=== PATIENT | female | born 1970 | race Caucasian/White ===

== ENCOUNTER 2016-08-09 07:17 | Emergency (ER) | payer BC, OTHER ==
--- NOTE | 2016-08-09 08:39 | ER Document Report ---
HPI - HPI Pain Level: 4 - REPRODUCTIVE LMP: hysterectomy Reproductive: DENIES: : - DERM Skin Color: Normal <ANUJ FUENTES - Last Filed: 08/09/16 08:39> Past Medical History - Social History Smoking Status: Never Smoker Patient has suicidal ideation: No Patient has homicidal ideation: No - Past Medical History Cardiac Medical History: Denies: Hx Coronary Artery Disease, Hx Heart Attack, Hx Hypertension Pulmonary Medical History: Reports: Hx Asthma - WHEEZING FROM COUGH Denies: Hx Bronchitis, Hx COPD, Hx Pneumonia, Hx Tuberculosis Neurological Medical History: Denies: Hx Cerebrovascular Accident, Hx Seizures Renal/ Medical History: Reports: Hx Ovarian Cysts - left. Denies: Hx End Stage Renal Disease, Hx Kidney Stones, Hx Peritoneal Dialysis, Hx Pelvic Inflammatory Disease Malignancy Medical History: Denies: Hx Breast Cancer, Hx Cervical Cancer, Hx Ovarian Cancer Past Surgical History: Reports: Hx Tonsillectomy. Denies: Hx Appendectomy, Hx Bowel Surgery, Hx Section, Hx Cholecystectomy, Hx Coronary Artery Bypass Graft, Hx Gastric Bypass Surgery, Hx Herniorrhaphy, Hx Hysterectomy, Hx Mastectomy, Hx Pacemaker, Hx Tubal Ligation - Immunizations Immunizations up to date: Yes Hx Diphtheria, Pertussis, Tetanus Vaccination: Yes - UNKNOWN <ANUJ FUENTES - Last Filed: 08/09/16 08:39> Vertical Provider Document - INFECTION CONTROL TRAVEL OUTSIDE OF THE [place] IN LAST 30 DAYS: No - RESPIRATORY O2 Sat by Pulse Oximetry: 97 <ANUJ FUENTES - Last Filed: 08/09/16 08:39> Course - Vital Signs Vital signs: Temp Pulse Resp BP Pulse Ox 97.3 F 88 16 132/79 H 97 08/09/16 07:24 08/09/16 07:24 08/09/16 07:55 08/09/16 07:24 08/09/16 07:24 <ANUJ FUENTES - Last Filed: 08/09/16 08:39> - Vital Signs Vital signs: Temp Pulse Resp BP Pulse Ox 97.3 F 88 16 132/79 H 97 08/09/16 07:24 08/09/16 07:24 08/09/16 07:55 08/09/16 07:24 08/09/16 08:39 <DIGNA BELLAMY - Last Filed: 02/07/17 10:01> Discharge <ANUJ FUENTES - Last Filed: 08/09/16 08:39> <DIGNA BELLAMY - Last Filed: 08/09/16 10:01> - Discharge Clinical Impression: Influenza A Instructions: Influenza ([facility]) [id number] Additional Instructions: Avoid people that smoke. Please drink plenty water to stay hydrated. You can expect to feel sick and unwell for approximately 1-2 weeks. Please follow-up with your primary care provider in approximately one week. Continue with Tylenol Motrin for fever control and pain control. Prescriptions: Ondansetron [Zofran Odt 4 mg Tablet] 1 - 2 tab PO Q4H PRN #30 tab.rapdis PRN Reason: For Nausea/Vomiting Forms: Return to Work
[2016-08-09] MEDS ORDERED: ALBUTEROL SULFATE HFA (90 MCG/PUFF) 8 GM MDI (1 MDI/ER DISP) IH ONE (09:54)
[2016-08-09 10:11] VITALS: BP 130/75
--- NOTE | 2016-08-09 21:04 | ER Document Report ---
ED General - General Chief Complaint: Flu Symptoms Stated Complaint: BODY ACHES TRAVEL OUTSIDE OF THE [place] IN LAST 30 DAYS: No - HPI Patient complains to provider of: fevers chills body aches Notes: This coming in for day history of fevers chills body aches nausea vomiting diarrhea patient denies any flu shot this year. Patient denies any recent travel denies any recent antibiotics. Otherwise patient nontoxic looking upon my evaluation. - Related Data Allergies/Adverse Reactions: No Known Drug Allergies Allergy (Verified 08/09/16 07:23) POLLEN Allergy (Mild, Uncoded 06/11/12 13:52) Past Medical History - Social History Smoking Status: Never Smoker Family History: Reviewed & Not Pertinent Patient has suicidal ideation: No Patient has homicidal ideation: No - Past Medical History Cardiac Medical History: Denies: Hx Coronary Artery Disease, Hx Heart Attack, Hx Hypertension Pulmonary Medical History: Reports: Hx Asthma - WHEEZING FROM COUGH Denies: Hx Bronchitis, Hx COPD, Hx Pneumonia, Hx Tuberculosis Neurological Medical History: Denies: Hx Cerebrovascular Accident, Hx Seizures Renal/ Medical History: Reports: Hx Ovarian Cysts - left. Denies: Hx End Stage Renal Disease, Hx Kidney Stones, Hx Peritoneal Dialysis, Hx Pelvic Inflammatory Disease Malignancy Medical History: Denies: Hx Breast Cancer, Hx Cervical Cancer, Hx Ovarian Cancer Past Surgical History: Reports: Hx Tonsillectomy. Denies: Hx Appendectomy, Hx Bowel Surgery, Hx Section, Hx Cholecystectomy, Hx Coronary Artery Bypass Graft, Hx Gastric Bypass Surgery, Hx Herniorrhaphy, Hx Hysterectomy, Hx Mastectomy, Hx Pacemaker, Hx Tubal Ligation - Immunizations Immunizations up to date: Yes Hx Diphtheria, Pertussis, Tetanus Vaccination: Yes - UNKNOWN Review of Systems - Review of Systems Constitutional: Fever - Myalgias, Malaise EENT: No symptoms reported Cardiovascular: No symptoms reported Respiratory: No symptoms reported Gastrointestinal: Nausea, Vomiting Genitourinary: No symptoms reported Female Genitourinary: No symptoms reported Musculoskeletal: No symptoms reported Skin: No symptoms reported Hematologic/Lymphatic: No symptoms reported Neurological/Psychological: No symptoms reported -: Yes All other systems reviewed and negative Physical Exam - Vital signs Vitals: Temp Pulse Resp BP Pulse Ox 97.3 F 88 18 132/79 H 97 08/09/16 07:24 08/09/16 07:24 08/09/16 07:24 08/09/16 07:24 08/09/16 07:24 Interpretation: Normal - General General appearance: Appears well, Alert - HEENT Head: Normocephalic, Atraumatic Eyes: Normal Pupils: PERRL - Respiratory Respiratory status: No respiratory distress Chest status: Nontender Breath sounds: Normal Chest palpation: Normal - Cardiovascular Rhythm: Regular Heart sounds: Normal auscultation Murmur: No - Abdominal Inspection: Normal Distension: No distension Bowel sounds: Normal Tenderness: Nontender Organomegaly: No organomegaly - Back Back: Normal, Nontender - Extremities General upper extremity: Normal inspection, Nontender, Normal color, Normal ROM , Normal temperature General lower extremity: Normal inspection, Nontender, Normal color, Normal ROM , Normal temperature, Normal weight bearing. No: No's sign - Neurological Neuro grossly intact: Yes Cognition: Normal Orientation: AAOx4 Wayne Coma Scale Eye Opening: Spontaneous Wayne Coma Scale Verbal: Oriented Wayne Coma Scale Motor: Obeys Commands Wayne Coma Scale Total: 15 Speech: Normal Motor strength normal: LUE, RUE, LLE, RLE Sensory: Normal - Psychological Associated symptoms: Normal affect, Normal mood - Skin Skin Temperature: Warm Skin Moisture: Dry Skin Color: Normal Course - Re-evaluation Re-evalutation: 08/09/16 21:04 Patient has been evaluated for flulike symptoms. At this time there is no signs of serious illness no signs of sepsis or other serious etiologies. Patient was educated about the disease process. Patient was placed on the appropriate medications to help with their symptoms. Patient was also encouraged to drink plenty of fluids and stay well hydrated. Patient is to followup with their primary care provider. - Vital Signs Vital signs: Temp Pulse Resp BP Pulse Ox 97.4 F 85 18 130/75 H 100 08/09/16 10:10 08/09/16 10:10 08/09/16 10:10 08/09/16 10:10 08/09/16 10:10 Discharge - Discharge Clinical Impression: Influenza A Disposition: HOME, SELF-CARE Instructions: Influenza ([facility]) [id number] Additional Instructions: Avoid people that smoke. Please drink plenty water to stay hydrated. You can expect to feel sick and unwell for approximately 1-2 weeks. Please follow-up with your primary care provider in approximately one week. Continue with Tylenol Motrin for fever control and pain control. Prescriptions: Ondansetron [Zofran Odt 4 mg Tablet] 1 - 2 tab PO Q4H PRN #30 tab.rapdis PRN Reason: For Nausea/Vomiting Forms: Return to Work
== END 2016-08-09 10:11 | disposition home or self-care (01) ==
LOC: ER 07:17
DX: J09.X2 Influenza due to identified novel influenza A virus with other respiratory manifestations (principal); R50.9 Fever, unspecified; R52 Pain, unspecified; R11.2 Nausea with vomiting, unspecified; R19.7 Diarrhea, unspecified
CPT/HCPCS: 99283; 87804; J3490

== ENCOUNTER 2017-10-03 07:24 | Emergency (ER) | payer SELFPAY ==
--- NOTE | 2017-10-03 08:18 | ER Document Report ---
ED General - General Chief Complaint: Foot Pain Stated Complaint: LEFT FOOT PAIN Time Seen by Provider: 10/03/17 07:42 Mode of Arrival: Ambulatory Information source: Patient Notes: 47-year-old female presents with complaints of left foot pain worsening over the past 4 days. Patient notes she was in the yard with her grandchildren denies any known significant trauma. Patient admits that there is been a crack under her foot but that there has been no drainage no fevers no swelling under her feet. Patient denies any known foreign bodies inside her foot patient states the pain from her foot radiates to her calf only when she turns her foot sometimes, denies any DVT PE risk factors TRAVEL OUTSIDE OF THE [place] IN LAST 30 DAYS: No - HPI Onset: Last week Onset/Duration: Persistent Quality of pain: Achy Severity: Mild Pain Level: 1 Associated symptoms: Body/muscle aches Exacerbated by: Movement, Walking Relieved by: Denies Similar symptoms previously: No Recently seen / treated by doctor: No - Related Data Allergies/Adverse Reactions: No Known Drug Allergies Allergy (Verified 10/03/17 07:27) POLLEN Allergy (Mild, Uncoded 10/03/17 07:27) Past Medical History - Social History Smoking Status: Never Smoker Cigarette use (# per day): No Chew tobacco use (# tins/day): No Smoking Education Provided: No Family History: Reviewed & Not Pertinent Patient has suicidal ideation: No Patient has homicidal ideation: No - Past Medical History Cardiac Medical History: Denies: Hx Coronary Artery Disease, Hx Heart Attack, Hx Hypertension Pulmonary Medical History: Reports: Hx Asthma - WHEEZING FROM COUGH Denies: Hx Bronchitis, Hx COPD, Hx Pneumonia, Hx Tuberculosis Neurological Medical History: Denies: Hx Cerebrovascular Accident, Hx Seizures Renal/ Medical History: Reports: Hx Ovarian Cysts - left. Denies: Hx End Stage Renal Disease, Hx Kidney Stones, Hx Peritoneal Dialysis, Hx Pelvic Inflammatory Disease Malignancy Medical History: Denies: Hx Breast Cancer, Hx Cervical Cancer, Hx Ovarian Cancer Past Surgical History: Reports: Hx Hysterectomy, Hx Orthopedic Surgery, Hx Tonsillectomy. Denies: Hx Appendectomy, Hx Bowel Surgery, Hx Section, Hx Cholecystectomy, Hx Coronary Artery Bypass Graft, Hx Gastric Bypass Surgery, Hx Herniorrhaphy, Hx Mastectomy, Hx Pacemaker, Hx Tubal Ligation - Immunizations Immunizations up to date: Yes Hx Diphtheria, Pertussis, Tetanus Vaccination: Yes - UNKNOWN Review of Systems - Review of Systems Notes: REVIEW OF SYSTEMS: CONSTITUTIONAL : Denies fever, chills, or sweats. Denies recent illness. EENT: Denies eye, ear, throat, or mouth pain or symptoms. Denies nasal or sinus congestion or discharge. Denies throat, tongue, or mouth swelling or difficulty swallowing. CARDIOVASCULAR: Denies chest pain. Denies palpitations or racing or irregular heart beat. Denies ankle edema. RESPIRATORY: Denies cough, cold, or chest congestion. Denies shortness of breath, difficulty breathing, or wheezing. GASTROINTESTINAL: Denies abdominal pain or distention. Denies nausea, vomiting , or diarrhea. Denies blood in vomitus, stools, or per rectum. Denies black, tarry stools. Denies constipation. GENITOURINARY: Denies difficulty urinating, painful urination, burning, frequency, blood in urine, or discharge. FEMALE GENITOURINARY: Denies vaginal bleeding, heavy or abnormal periods, irregular periods. Denies vaginal discharge or odor. MUSCULOSKELETAL: Admits left foot pain SKIN: Denies rash, lesions or sores. HEMATOLOGIC : Denies easy bruising or bleeding. LYMPHATIC: Denies swollen, enlarged glands. NEUROLOGICAL: Denies confusion or altered mental status. Denies passing out or loss of consciousness. Denies dizziness or lightheadedness. Denies headache. Denies weakness or paralysis or loss of use of either side. Denies problems with gait or speech. Denies sensory loss, numbness, or tingling. Denies seizures. PSYCHIATRIC: Denies anxiety or stress. Denies depression, suicidal ideation, or homicidal ideation. ALL OTHER SYSTEMS REVIEWED AND NEGATIVE. PHYSICAL EXAMINATION: GENERAL: Well-appearing, well-nourished and in no acute distress. HEAD: Atraumatic, normocephalic. EYES: Pupils equal round extraocular movements intact, conjunctiva are normal. ENT: Nares patent NECK: Normal range of motion LUNGS: No respiratory distress Musculoskeletal: Normal range of motion tenderness upon palpation of the base of the fifth digit of the left foot mild swelling noted no erythema no drainage NEUROLOGICAL: Normal speech, normal gait. PSYCH: Normal mood, normal affect. SKIN: cracked skin base foot , no erythema ,drainage or eva Physical Exam - Vital signs Vitals: Temp Pulse Resp BP Pulse Ox 97.6 F 70 16 150/70 H 96 10/03/17 07:31 10/03/17 07:31 10/03/17 07:31 10/03/17 07:31 10/03/17 07:31 Course - Re-evaluation Re-evalutation: 10/03/17 08:18 Patient's pain is most consistent with mechanical injury rather than infectious process, there is no signs of a DVT. X-rays pending 10/03/17 08:58 X-ray noted no acute fracture, patient was offered Toradol here she defers, she will be discharged home with orthopedic follow-up and anti-inflammatories and is otherwise well-appearing no distress After performing a Medical Screening Examination, I estimate there is LOW risk for INTRACRANIAL HEMORRHAGE, UNSTABLE SPINE FRACTURE, CENTRAL CORD SYNDROME, CAUDA EQUINA, THORACIC AORTIC DISSECTION, PNEUMOTHORAX, PERFORATED BOWEL, RUPTURED ABDOMINAL AORTIC ANEURYSM, ACUTE TENDON RUPTURE, COMPARTMENT SYNDROME, or OPEN FRACTURE, thus I consider the discharge disposition reasonable. Also, there is no evidence or peritonitis, sepsis, or toxicity. I have reevaluated this patient multiple times and no significant life threatening changes are noted. The patient and I have discussed the diagnosis and risks, and we agree with discharging home to follow-up with their primary doctor with the understanding that symptoms and presentations can change. We also discussed returning to the Emergency Department immediately if new or worsening symptoms occur. We have discussed the symptoms which are most concerning (e.g., bloody stool, fever, changing or worsening pain, vomiting) that necessitate immediate return. - Vital Signs Vital signs: Temp Pulse Resp BP Pulse Ox 97.6 F 70 16 150/70 H 96 10/03/17 07:31 10/03/17 07:31 10/03/17 07:31 10/03/17 07:31 10/03/17 07:31 - Diagnostic Test Radiology reviewed: Image reviewed - no acute abnormality, Reports reviewed Discharge - Discharge Clinical Impression: Foot sprain Condition: Stable Disposition: HOME, SELF-CARE Additional Instructions: Please allow for light duty due to leg injury, for 1 week Prescriptions: Naproxen 500 mg PO BID #20 tablet Referrals: KANDI MORILLO MD [Primary Care Provider] - Follow up as needed OSCAR JONES MD [ACTIVE STAFF] - Follow up tomorrow
--- NOTE | 2017-10-03 08:43 | RADIOLOGY REPORT (SQ) ---
EXAM DESCRIPTION: FOOT LEFT COMPLETE COMPLETED DATE/TIME: 10/03/2017 8:26 am REASON FOR STUDY: 4 days pain at base 5th digit COMPARISON: None. NUMBER OF VIEWS: Three views. TECHNIQUE: AP, lateral and oblique without weight bearing radiographic images acquired of the left f oot. LIMITATIONS: None. FINDINGS: MINERALIZATION: Normal. BONES: No acute fracture or dislocation. No worrisome bone lesions. No significant osteophytes. JOINTS: Mild degenerative change tarsal bones. SOFT TISSUES: Mild generalized soft tissue swelling OTHER: No other significant finding. IMPRESSION: No significant soft tissue or bony pathology at the level of the 5th metatarsal to expla in the patient's clinical symptoms. TECHNICAL DOCUMENTATION: JOB ID: [id number] [employer]- All Rights Reserved Reading location - IP/workstation name: [email or web address]
[2017-10-03 09:20] VITALS: BP 125/69
== END 2017-10-03 09:20 | disposition home or self-care (01) ==
LOC: ER 07:24
DX: S93.602A Unspecified sprain of left foot, initial encounter (principal); M79.672 Pain in left foot; M79.1 Myalgia; M79.89 Other specified soft tissue disorders; X58.XXXA Exposure to other specified factors, initial encounter; J45.909 Unspecified asthma, uncomplicated
CPT/HCPCS: 99283